=== PATIENT | female | born 1985 | race Caucasian/White ===

== ENCOUNTER 2021-06-10 12:46 | Inpatient (IN) | payer BC ==
--- OUTSIDE RECORDS SUMMARY | 2021-06-10 12:48 | XMS REPORT | Continuity of Care Document ---
:1985 Author Organization [facility] t Address [address] [place] [address] Dr. Wong [address] [place] [id number] Care Team Providers Name Role Phone Van_Gavino Attending Clinician Unavailable Van_T Admitting Clinician Unavailable Payers Payer Name Policy Type Policy Number Effective Date Expiration Date S ource [place] [id number] 2020 00:00:00 [place] Problems This patient has no known problems. Allergies, Adverse Reactions, Alerts This patient has no known allergies or adverse reactions. Medications This patient has no known medications. Procedures This patient has no known procedures. Encounters Start End Encounter Admission Attending Care Care Encounter Source Date/Time Date/Time Type Type Clinicians Facility Department ID 2021-04-08 2021-04-08 Outpatient Christine VFP VFP [id number] [id number] [facility] 11:03:00 11:03:00 [id number] Family Practic e Results This patient has no known results.
[2021-06-10] MEDS ORDERED: CEFEPIME 1 GM/VIAL ONE (14:08)
[2021-06-10] MEDS ORDERED: MORPHINE 4 MG/ML SYR ONE (14:08)
[2021-06-10] MEDS ORDERED: NA CHLORIDE 0.9% 1,000 ML ONE ×2 (14:09→16:10)
[2021-06-10] MEDS ORDERED: ONDANSETRON 4 MG/2 ML VIAL ONE (14:09)
[2021-06-10] MEDS ORDERED: NA CHLORIDE 0.9% 100 ML ONE (14:09)
--- NOTE | 2021-06-10 14:24 | EDPHYS ---
Physician Documentation [facility] Name: Flor Douglas Age: 36 yrs Sex: Female : 1985 Arrival Date: 06/10/2021 Time: 12:55 Bed 5 Private MD: Silvano Schaefer T ED Physician Aldo Zaragoza HPI: 06/10 14:07 This 36 yrs old Female presents to ER via Wheelchair with complaints of Wound Check. kb 14:07 The patient presents with cellulitis of the lateral aspect of left thigh. Description: kb erythematous, swollen, warm. Onset: The symptoms/episode began/occurred today. Possible cause(s): unknown. Associated signs and symptoms: Pertinent positives: drainage, erythema, swelling, Pertinent negatives: foreign body sensation, fever, headache, nausea, shortness of breath, vomiting. Modifying factors: the symptoms are alleviated by nothing, the symptoms are aggravated by movement, pressure, touching. Severity of symptoms: At their worst the symptoms were moderate, in the emergency department the symptoms are unchanged. The patient has not experienced similar symptoms in the past. The patient has not recently seen a physician. Pt was seen by NELDA Manrique in the office for a skin cancer removal. The wound got infected so she followed up today and had an I\\T\\D done with packing in place. Was sent to ER for admission for IV antibiotics due to cellulitis. Historical: - Allergies: 12:59 Vicodin; ll1 - PMHx: 12:59 Diabetes mellitus; depression; ll1 - PSHx: 12:59 section; breast implants; ll1 - Immunization history:: Client reports having NOT received the Covid vaccine. - Social history:: Smoking status: Patient denies any tobacco usage or history of. ROS: 14:06 Constitutional: Negative for fever, chills, and weight loss. kb 14:06 Skin: Positive for cellulitis, of the lateral aspect of left thigh, open wound. 14:06 All other systems are negative. Exam: 14:06 Constitutional: This is a well developed, well nourished patient who is awake, alert, kb and in no acute distress. Head/Face: Normocephalic, atraumatic. ENT: Moist Mucous membranes Cardiovascular: Regular rate and rhythm with a normal S1 and S2. No gallops, murmurs, or rubs. No pulse deficits. Respiratory: Respirations even and unlabored. No increased work of breathing. Talking in full sentences MS/ Extremity: Pulses equal, no cyanosis. Neurovascular intact. Full, normal range of motion. Neuro: Awake and alert, GCS 15, oriented to person, place, time, and situation. Moves all extremities. Normal gait. Psych: Awake, alert, with orientation to person, place and time. Behavior, mood, and affect are within normal limits. 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 Vital Signs: 12:57 BP 156 / 85; Pulse 120; Resp 18; Temp 96.5; Pulse Ox 100% ; Weight 83.91 kg; Height 5 ll1 ft. 9 in. (175.26 cm); Pain 10/10; 14:30 BP 125 / 84; Pulse 104; Resp 16; Pulse Ox 100% ; bp 15:30 BP 119 / 52; Pulse 70; Resp 18; Pulse Ox 99% ; bp 16:30 BP 120 / 87; Pulse 108; Resp 17; Pulse Ox 100% ; bp 17:30 BP 92 / 63; Pulse 95; Resp 16; Pulse Ox 99% ; bp 12:57 Body Mass Index 27.32 (83.91 kg, 175.26 cm) ll1 MDM: 13:10 Patient medically screened. kb 14:06 Data reviewed: vital signs, nurses notes. Data interpreted: Pulse oximetry: on room air kb is 100 %. Interpretation: normal. 14:22 Counseling: I had a detailed discussion with the patient and/or guardian regarding: the kb historical points, exam findings, and any diagnostic results supporting the discharge/admit diagnosis, lab results, the need for further work-up and treatment in the hospital. Physician consultation: Amauri Zaragoza MD was contacted at 14:22, regarding admission, to the medical/surgical unit. patient's condition, and will see patient in ED. 06/10 13:23 Order name: CBC with Diff; Complete Time: 15:22 kb 06/10 13:23 Order name: Basic Metabolic Panel; Complete Time: 15:22 kb 06/10 13:23 Order name: Blood Culture Adult (2) kb 06/10 13:23 Order name: Procal; Complete Time: 15:22 kb 06/10 13:23 Order name: Lactate; Complete Time: 15:22 kb 06/10 13:25 Order name: Wound Culture kb 06/10 13:25 Order name: COVID-19 SARS RT PCR (Document "Date of Onset" if Symptomatic) kb 06/10 13:26 Order name: Wound Culture EDMS 06/10 13:26 Order name: SARS-COV-2 RT PCR; Complete Time: 14:57 EDMS 06/10 14:48 Order name: Urine Dipstick-Ancillary; Complete Time: 14:49 EDMS 06/10 15:02 Order name: Ketone, Serum; Complete Time: 16:35 kb 06/10 15:20 Order name: Manual Differential; Complete Time: 15:22 EDMS 06/10 17:02 Order name: Glucose, Ancillary Testing; Complete Time: 17:04 EDMS 06/10 13:23 Order name: IV Start; Complete Time: 14:51 kb 06/10 15:11 Order name: CONS Physician Consult EDMS 06/10 16:42 Order name: Blood Glucose Level; Complete Time: 16:51 kb Administered Medications: 14:30 Drug: morphine 4 mg Route: IVP; Site: right antecubital; bp 17:54 Follow up: Response: Pain is decreased bp 14:30 Drug: Zofran (Ondansetron) 4 mg Route: IVP; Site: right antecubital; bp 17:55 Follow up: Response: No adverse reaction bp 14:30 Drug: Cefepime 1 grams Route: IVPB; Rate: 200 ml/hr; Infused Over: 30 mins; Site: right bp antecubital; 17:53 Follow up: IV Status: Completed infusion; IV Intake: 100ml bp 14:30 Drug: NS 0.9% 1000 ml Route: IV; Rate: 1000 ml; Site: right antecubital; bp 17:52 Follow up: IV Status: Completed infusion; IV Intake: 1000ml bp 15:00 Drug: vancoMYCIN 1 grams Route: IVPB; Infused Over: 2 hrs; Site: right antecubital; bp 17:53 Follow up: IV Status: Completed infusion; IV Intake: 250ml bp 15:45 Drug: NS 0.9% 1000 ml Route: IV; Rate: 1000 ml; Site: right antecubital; bp 17:52 Follow up: IV Status: Completed infusion; IV Intake: 1000ml bp 15:45 Drug: Insulin Regular Human 10 units {Co-Signature: [email or web address] (Alee Hatfield RN).} Route: bp IVP; Site: right antecubital; 17:53 Follow up: Response: No adverse reaction; Blood sugar is lowered bp Disposition: 06/11 07:21 Co-signature as Attending Physician, Aldo Zaragoza MD. rn 07:21 I agree with the assessment and plan of care. Attestation: The patient's history, exam rn findings, diagnostics, and a summary of any interventions or procedures was reviewed in detail with Judy SINGH. Disposition Summary: 06/10/21 14:23 Hospitalization Ordered Hospitalization Status: Inpatient Admission kb Provider: Amauri Zaragoza Location: Telemetry/MedSurg (Inpatient) kb Condition: Stable kb Problem: new kb Symptoms: are unchanged kb Bed/Room Type: Standard Room Assignment: 206(06/10/21 17:18) ll1 Diagnosis - Cellulitis of left lower limb kb Forms: - Medication Reconciliation Form kb - SBAR form kb Signatures: Dispatcher [employer] EDMS Judy Hernadez FNP-C FNP-Ckb Nieto, Roman, MD MD rn Peltier, Brian RN RN Christie Blankenship RN RN ll1 Alee Hatfield RN [email or web address] Corrections: (The following items were deleted from the chart) 06/10 15:20 15:20 [facility] 17:[facility] 14:23 kb ll1
--- NOTE | 2021-06-10 14:24 | ER ---
Nurse's Notes [facility] Name: Flor Douglas Age: 36 yrs Sex: Female : 1985 Arrival Date: 06/10/2021 Time: 12:55 Bed 5 Private MD: Silvano Schaefer T Diagnosis: Cellulitis of left lower limb Presentation: 06/10 12:57 Chief complaint: Patient states: Skin CA spot removed from L upper leg 1 week ago. ll1 Pain, swelling, redness worsening for 4 days. Sent by plastic surgeon for eval. Coronavirus screen: Vaccine status: Patient reports being unvaccinated. Client denies travel out of the [place] in the last 14 days. At this time, the client does not indicate any symptoms associated with coronavirus-19. Ebola Screen: Patient denies travel to an Ebola-affected area in the 21 days before illness onset. Initial Sepsis Screen: Does the patient meet any 2 criteria? HR > 90 bpm. No. Patient's initial sepsis screen is negative. Does the patient have a suspected source of infection? Yes: Skin breakdown/wound. Risk Assessment: Do you want to hurt yourself or someone else? Patient reports no desire to harm self or others. Onset of symptoms was June 07, 2021. 12:57 Method Of Arrival: Wheelchair ll1 12:57 Acuity: JORDAN 3 ll1 Triage Assessment: 13:00 General: Appears distressed, uncomfortable, Behavior is cooperative, appropriate for bp age, anxious. Pain: Complains of pain in lateral aspect of left thigh. EENT: No deficits noted. Neuro: No deficits noted. Cardiovascular: No deficits noted. Respiratory: No deficits noted. GI: No signs and/or symptoms were reported involving the gastrointestinal system. : No signs and/or symptoms were reported regarding the genitourinary system. Derm: Wound noted lateral aspect of left thigh Wound is INFECTED SURGICAL WOUND. Musculoskeletal: No deficits noted. Historical: - Allergies: 12:59 Vicodin; ll1 - PMHx: 12:59 Diabetes mellitus; depression; ll1 - PSHx: 12:59 section; breast implants; ll1 - Immunization history:: Client reports having NOT received the Covid vaccine. - Social history:: Smoking status: Patient denies any tobacco usage or history of. Screenin:00 Abuse screen: Denies threats or abuse. Denies injuries from another. Nutritional bp screening: No deficits noted. Tuberculosis screening: No symptoms or risk factors identified. Fall Risk None identified. Assessment: 13:00 General: SEE TRIAGE NOTE. bp 13:00 Pain: Complains of pain in lateral aspect of left thigh. bp 15:00 Reassessment: No changes from previously documented assessment. Patient and/or family bp updated on plan of care and expected duration. Pain level reassessed. Patient is alert, oriented x 3, equal unlabored respirations, skin warm/dry/pink. ADMIT INITIATED. 17:45 Reassessment: ADMIT COMPLETE. REPORT TO TERE TORRES FOR RM 206. bp Vital Signs: 12:57 BP 156 / 85; Pulse 120; Resp 18; Temp 96.5; Pulse Ox 100% ; Weight 83.91 kg; Height 5 ll1 ft. 9 in. (175.26 cm); Pain 10/10; 14:30 BP 125 / 84; Pulse 104; Resp 16; Pulse Ox 100% ; bp 15:30 BP 119 / 52; Pulse 70; Resp 18; Pulse Ox 99% ; bp 16:30 BP 120 / 87; Pulse 108; Resp 17; Pulse Ox 100% ; bp 17:30 BP 92 / 63; Pulse 95; Resp 16; Pulse Ox 99% ; bp 12:57 Body Mass Index 27.32 (83.91 kg, 175.26 cm) ll1 ED Course: 12:55 Patient arrived in ED. am2 12:56 Silvano Schaefer MD is Private Physician. am2 12:59 Triage completed. ll1 13:00 Arm band placed on Patient placed in an exam room, on a stretcher. ll1 13:00 Patient has correct armband on for positive identification. Bed in low position. Call bp light in reach. Side rails up X2. 13:08 Judy Hernade[facility]-C [facility]. kb 13:08 Aldo Zaragoza MD is Attending Physician. kb 13:33 Dash Laurent, MELISSA is Primary Nurse. bp 14:22 Amauri Zaragoza MD is Hospitalizing Provider. kb 14:23 Inserted saline lock: 20 gauge in right antecubital area, using aseptic technique. bp 17:52 No provider procedures requiring assistance completed. Patient admitted, IV remains in bp place. Administered Medications: 14:30 Drug: morphine 4 mg Route: IVP; Site: right antecubital; bp 17:54 Follow up: Response: Pain is decreased bp 14:30 Drug: Zofran (Ondansetron) 4 mg Route: IVP; Site: right antecubital; bp 17:55 Follow up: Response: No adverse reaction bp 14:30 Drug: Cefepime 1 grams Route: IVPB; Rate: 200 ml/hr; Infused Over: 30 mins; Site: right bp antecubital; 17:53 Follow up: IV Status: Completed infusion; IV Intake: 100ml bp 14:30 Drug: NS 0.9% 1000 ml Route: IV; Rate: 1000 ml; Site: right antecubital; bp 17:52 Follow up: IV Status: Completed infusion; IV Intake: 1000ml bp 15:00 Drug: vancoMYCIN 1 grams Route: IVPB; Infused Over: 2 hrs; Site: right antecubital; bp 17:53 Follow up: IV Status: Completed infusion; IV Intake: 250ml bp 15:45 Drug: NS 0.9% 1000 ml Route: IV; Rate: 1000 ml; Site: right antecubital; bp 17:52 Follow up: IV Status: Completed infusion; IV Intake: 1000ml bp 15:45 Drug: Insulin Regular Human 10 units {Co-Signature: [email or web address] (Alee Hatfield RN).} Route: bp IVP; Site: right antecubital; 17:53 Follow up: Response: No adverse reaction; Blood sugar is lowered bp Intake: 17:52 IV: 1000ml; Total: 1000ml. bp 17:52 IV: 1000ml; Total: 2000ml. bp 17:53 IV: 100ml; Total: 2100ml. bp 17:53 IV: 250ml; Total: 2350ml. bp Outcome: 14:23 Decision to Hospitalize by Provider. kb 17:38 Admitted to Med/surg accompanied by tech, via wheelchair, room 206, Report called to bp Nunu Goldman 17:38 Condition: stable 17:38 Instructed on the need for admit. 19:07 Patient left the ED. bp Signatures: Judy Hernadez, FRANCISCO CAPELLAN-Ioana Bowman am2 Dash Laurent RN RN bp Christie Moya RN RN 1 Alee Hatfield RN [email or web address] Corrections: (The following items were deleted from the chart) 17:46 15:00 Reassessment: No changes from previously documented assessment. Patient and/or bp family updated on plan of care and expected duration. Pain level reassessed. Patient is alert, oriented x 3, equal unlabored respirations, skin warm/dry/pink. bp
[2021-06-10 14:48] LABS: Urine Blood Trace-intact (Negative); Urine Glucose 2+ (Negative); Urine Protein Negative (Negative)
[2021-06-10 14:49] LABS: Absolute Lymphocytes (CBC) 0.7 K/uL (0.7-4.9); Lymphocytes % 3.3 % (15.3-44.8)
[2021-06-10 15:04] LABS: Potassium 3.5 mmol/L (3.5-5.1)
--- NOTE | 2021-06-10 15:18 | P.HP ---
Certification for Inpatient Patient admitted to: Inpatient With expected LOS: >2 Midnights Practitioner: I am a practitioner with admitting privileges, knowledge of patient current condition, hospital course, and medical plan of care. Services: Services provided to patient in accordance with Admission requirements found in Title 42 Section 412.3 of the Code of Federal Regulations Patient History Date of Service: 06/10/21 Reason for admission: L thigh wound infection History of Present Illness: 36yo F, PMH: type 1 diabetes mellitus, depression Presents to ED from her plastic surgeon's office due to infection of her L thigh wound. Patient underwent excision of a "skin cancer" ~1 week ago. She was doing well up until ~POD 3-4 when she noticed redness and pain of her upper thigh. This progressed and she was seen in the office today. Her surgical wound was opened up and patient reports some purulent drainage was expressed. She was advised by her surgeon to present to ED for IV antibiotics and possible further I&D. Pain in upper thigh has been severe enough to limit her ambulation. She took 3 days of antibiotics post-operatively, but is unsure of what antibiotic. In the ED, patient is afebrile, slightly tachycardic, and noted to have a leukocytosis up to 20k, hyperglycemic to 400. - Past Medical/Surgical History -: DM, type 1 -: Depression -: Csxn x2 -: Breast implants -: excisional biopsy - Family History Family History: Reviewed- Non-Contributory - Social History Smoking Status: Never smoker Alcohol use: No Place of Residence: Home Review of Systems 10-point ROS is otherwise unremarkable Physical Examination - Physical Exam General: Alert, Oriented x3, Other (somewhat uncomfortable appearing) HEENT: Mucous membr. moist/pink, Sclerae nonicteric Neck: Supple Respiratory: Clear to auscultation bilaterally, Normal air movement Cardiovascular: Regular rate/rhythm, No murmurs Gastrointestinal: Soft and benign, Non-distended, No tenderness Musculoskeletal: No swelling, No tenderness Integumentary: Other (L upper thigh, dressing in place, with significant surrounding erythema, tender to palpation, +warmth, no further appreciable abscess) Neurological: Normal speech, Normal strength at 5/5 x4 extr - Studies Laboratory Data (last 24 hrs) 06/10/21 14:23: Sodium 132 L, Potassium 3.5, BUN 9, Creatinine 0.88, Glucose 400 H 06/10/21 14:23: WBC 20.80 H*, Hgb 13.3, Hct 40.0, Plt Count 402 Assessment and Plan - Advance Directives Does patient have a Living Will: No Does patient have a Durable POA for Healthcare: No Physician Review Additional Text: Problem List L upper/lateral thigh wound cellulitis/abscess DM, type 1; insulin-dependent Depression admit for IV antibiotics - vanc & cefepime plastics consulted patient took perioperative antibiotics as prescribed leukocytosis and tachycardia, afebrile. no sepsis s/p I&D in office prior to admission ID consulted monitor labs, telemetry pain control IVF patient requesting to manage her glucose with her home insulin. discussed will need tight control and may not be able to fully accommodate if her glc remains elevated VTE: lovenox Code: full Dispo: anticipate dc home in ~2-3 days Time Spent Managing Pts Care (In Minutes): 60
[2021-06-10 15:21] LABS: Blood Morphology Comment NOT SEEN (NOT SEEN); Platelet Estimate ADEQ
[2021-06-10] MEDS ORDERED: D50W 25 GM/50 ML SYRINGE IV PRN (15:24)
[2021-06-10] MEDS ORDERED: GLUCAGON 1 MG/VIAL IM PRN (15:24)
[2021-06-10] MEDS ORDERED: VANCOMYCIN 1 GM/VIAL ONE (16:09)
[2021-06-10] MEDS ORDERED: NA CHLORIDE 0.9% 250 ML ONE (16:10)
[2021-06-10] MEDS ORDERED: INSULIN -REGULAR HUMAN 50 UNIT/0.5 ML ML ONE (16:10)
[2021-06-10] MEDS: NPH (HUMAN) 100 UNITS/ML INSULIN SQ SCH (17:00)
[2021-06-10 17:54] VITALS: BMI 27.3
[2021-06-10] MEDS: INSULIN -REGULAR HUMAN 50 UNIT/0.5 ML ML SQ SCH ×2 (17:55→21:10)
[2021-06-10] MEDS ORDERED: ONDANSETRON 4 MG/2 ML VIAL IV PRN (17:55)
[2021-06-10] MEDS: NA CHLORIDE 0.9% 1,000 ML IV SCH (17:55)
[2021-06-10] MEDS: ENOXAPARIN 40 MG/0.4 ML SQ SCH (21:08)
[2021-06-10] MEDS: MORPHINE 2 MG/ML SYR IV PRN (21:08)
[2021-06-10] MEDS: VANCOMYCIN 1.5 GM in NA CHLORIDE 0.9% 500 ML IVPB SCH (21:11)
[2021-06-10] MEDS: CEFEPIME 2 GM in NA CHLORIDE 0.9% 100 ML IV SCH (21:37)
[2021-06-11] MEDS: NA CHLORIDE 0.9% 1,000 ML IV SCH ×2 (03:55→16:15)
--- NOTE | 2021-06-11 05:49 | P.PN ---
Date of Service: 06/11/21 Sbjective: Continues with pain in left upper thigh, erythema slightly improved Morphine not lasting long enough No new complaints ROS: 10 point ROS as noted above, otherwise negative Physical exam General: Alert, Oriented x3, NAD HEENT: Mucous membr. moist/pink, Sclerae nonicteric Respiratory: Clear to auscultation bilaterally, Normal air movement Cardiovascular: Regular rate/rhythm, No murmurs Gastrointestinal: Soft and benign, Non-distended, No tenderness Musculoskeletal: No swelling, No tenderness Integumentary: L upper thigh, dressing in place, erythema improved Neurological: Normal speech, Normal strength at 5/5 x4 extr Problem List L upper/lateral thigh wound cellulitis/abscess DM, type 1; insulin-dependent Depression continue IV antibiotics - vanc & cefepime plastics consulted leukocytosis and tachycardia, afebrile on admission. no sepsis. Leukocytosis improving s/p I&D in office prior to admission Cultures were obtained at that point ID consulted as well. Continue antibiotics monitor labs, telemetry pain control with morphine, and oxycodone. Patient reports hallucinations with hydrocodone, and tramadol has been ineffective in the past DC IV fluids later today patient requesting to manage her glucose with her home insulin. discussed will need tight control and may not be able to fully accommodate if her glc remains elevated VTE: lovenox Code: full Dispo: anticipate dc home in ~2 days Time Spent Managing Pts Care (In Minutes): 35
[2021-06-11 05:51] LABS: Hematocrit 33.7 % (36.0-45.0); Lymphocytes % 6.7 % (15.3-44.8); MPV 7.8 fL (7.6-11.3); RBC Red Blood Cell Count 3.83 M/uL (3.86-4.86)
[2021-06-11 06:18] LABS: ALT/SGPT 15 U/L (12-78); AST/SGOT 13 U/L (15-37); Alkaline Phosphatase 98 U/L (45-117); BUN Blood Urea Nitrogen 6 mg/dL (7-18); Bicarbonate 22 mmol/L (21-32); Bilirubin Total 0.4 mg/dL (0.2-1.0); Glucose Level 189 mg/dL (74-106); Magnesium 2.1 mg/dL (1.8-2.4); Potassium 3.3 mmol/L (3.5-5.1); Protein, Total 5.9 g/dL (6.4-8.2); Sodium Level 139 mmol/L (136-145)
[2021-06-11] MEDS: MORPHINE 2 MG/ML SYR IV PRN ×3 (08:37→21:19)
[2021-06-11] MEDS: ENOXAPARIN 40 MG/0.4 ML SQ SCH (08:40)
[2021-06-11] MEDS: CEFEPIME 2 GM in NA CHLORIDE 0.9% 100 ML IV SCH ×2 (08:40→20:10)
[2021-06-11] MEDS: VANCOMYCIN 1.5 GM in NA CHLORIDE 0.9% 500 ML IVPB SCH ×2 (08:41→21:40)
[2021-06-11] MEDS: NPH (HUMAN) 100 UNITS/ML INSULIN SQ SCH ×2 (08:42→16:50)
[2021-06-11] MEDS: INSULIN -REGULAR HUMAN 50 UNIT/0.5 ML ML SQ SCH ×4 (08:42→20:09)
[2021-06-11] MEDS ORDERED: OXYCODONE HCL 5 MG TAB PO PRN (10:37)
--- NOTE | 2021-06-11 10:43 | P.PN ---
Subjective Date of Service: 06/11/21 Chief Complaint: L thigh wound infection The patient is a 28-year-old female with a past medical history of type 1 diabetes, depression, and squamous cell skin cancer who presented to the emergency department secondary to left thigh cellulitis. A week ago the patient underwent excision of a skin cancer lesion on her left upper thigh. Patient states that she was doing well up until postop day 3-4 when she started noticing redness and swelling to the area. She states that she took antibiotics for 3 days following her procedure, she does not remember which antibiotic she was taking. Her surgical wound was opened up and purulent drainage was expressed. She was advised by her plastic surgeon to present to the ED for possible treatment with IV antibiotics. Patient empirically placed on vancomycin and cefepime. Preliminary wound culture reports growing Staph coagulase positive. Patient denies any and past medical history of cellulitis or staph infection. Per patient she has no other cancerous lesions. Wound is currently packed with dressing to be changed by her plastic surgeon who is set to visit the patient in the hospital today. Patient currently a reports pain to the area and nausea. She denies diarrhea/shortness breast/chest pain. No COVID 19 symptoms. Patient tested negative at this facility. Review of Systems 10-point ROS is otherwise unremarkable Physical Examination - Vital Signs Temperature: 97.4 F Blood Pressure: 120/60 Pulse: 99 Respirations: 17 Pulse Ox (%): 94 - Physical Exam General: Alert, Oriented x3, Cooperative HEENT: Atraumatic, Normocephalic Neck: Supple Respiratory: Clear to auscultation bilaterally, Normal air movement Cardiovascular: Regular rate/rhythm, Normal S1 S2 Gastrointestinal: Normal bowel sounds, Soft and benign Integumentary: Other (Left upper thigh cellulitis/swelling. Open incision status post drainage of abscess.) - Studies Laboratory Data (last 24 hrs) 06/10/21 14:23: Sodium 132 L, Potassium 3.5, BUN 9, Creatinine 0.88, Glucose 400 H 06/10/21 14:23: WBC 20.80 H*, Hgb 13.3, Hct 40.0, Plt Count 402 Microbiology Data (last 24 hrs): 06/10/21 14:28 Wound - Left Thigh Gram Stain - Final Assessment And Plan - Plan Antibiotics: Vancomycin Start: 06/10 Cefepime Start: 1/4 Assessment/plan Infected incision status post excision of cancerous lesion Excision performed approximately 1 week ago. Area opened up and purulent drainage expressed. Continue wound care per Plastic Surgical team. Continue broad-spectrum IV antibiotics with vancomycin and cefepime until full culture reports obtained. Vancomycin trough goal of 10-15. Currently dosed q.12 hr. Leukocytosis Down trending, continue broad-spectrum IV antibiotics. Anemia Continue monitor H&H Diabetes type 1 Continue SSI. Strict glucose monitoring needed for proper infection control and wound healing. Protein caloric malnutrition: Moderate Recommend supplemental Ensure protein drinks. -medical management per primary team -plan care discussed with Dr. Reyes -thank you for consultation Physician Review Additional Text: Problem List L upper/lateral thigh wound cellulitis/abscess DM, type 1; insulin-dependent Depression admit for IV antibiotics - vanc & cefepime plastics consulted patient took perioperative antibiotics as prescribed leukocytosis and tachycardia, afebrile. no sepsis s/p I&D in office prior to admission ID consulted monitor labs, telemetry pain control IVF patient requesting to manage her glucose with her home insulin. discussed will need tight control and may not be able to fully accommodate if her glc remains elevated VTE: lovenox Code: full Dispo: anticipate dc home in ~2-3 days
[2021-06-11] MEDS ORDERED: POTASSIUM CL SA 10 MEQ TAB PO ONE (16:00)
[2021-06-12] MEDS ORDERED: POTASSIUM CL SA 10 MEQ TAB PO ONE ×2 (01:00→09:00)
[2021-06-12 04:47] LABS: Absolute Lymphocytes (CBC) 1.5 K/uL (0.7-4.9); Hematocrit 32.4 % (36.0-45.0); Lymphocytes % 12.1 % (15.3-44.8); MPV 7.5 fL (7.6-11.3); RBC Red Blood Cell Count 3.75 M/uL (3.86-4.86)
[2021-06-12 05:08] LABS: BUN Blood Urea Nitrogen 4 mg/dL (7-18); Bicarbonate 27 mmol/L (21-32); Potassium 3.6 mmol/L (3.5-5.1); Sodium Level 143 mmol/L (136-145)
[2021-06-12 05:27] LABS: Glucose Level 46 mg/dL (74-106)
--- NOTE | 2021-06-12 05:54 | P.PN ---
Date of Service: 06/12/21 Subjective: Leukocytosis improving Pain slowly improving as well, worse with dressing changes/packing No new complaints, remains afebrile ROS: 10 point ROS as noted above, otherwise negative Physical exam General: Alert, Oriented x3, NAD HEENT: Mucous membr. moist/pink, Sclerae nonicteric Respiratory: Clear to auscultation bilaterally, Normal air movement Cardiovascular: Regular rate/rhythm, No murmurs Gastrointestinal: Soft and benign, Non-distended, No tenderness Integumentary: L upper thigh, dressing in place, erythema much improved, dressing changes - c/d/i Problem List L upper/lateral thigh wound cellulitis/abscess DM, type 1; insulin-dependent Depression empirically treated by vanc/cefepime culture obtained in ED growing MSSA ID recommends monotherapy with IV Vanc for now leukocytosis and tachycardia, afebrile on admission. no sepsis. Leukocytosis improving s/p I&D in office prior to admission Cultures were obtained at that point pain control with morphine, and oxycodone. Patient reports hallucinations with hydrocodone, and tramadol has been ineffective in the past patient requested to manage her glucose with her home insulin. waiting on final cultures VTE: lovenox Code: full Dispo: anticipate dc home likely tomorrow with home health Time Spent Managing Pts Care (In Minutes): 35
--- NOTE | 2021-06-12 07:26 | P.PN ---
PRS Note S: dressing changed over night. tolerated well. still endorses pain, but overall improving. O: VSS WBC 15-->12 Cx: s. 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 clinically improving. - continue to pack twice a day with wet to dry kerlix (ok for patient to perform one of the dressing changes herself as she will be packing at home) - abx per ID - social work to help set up home health for wound care at home (supplies and aid) - elevate leg - tight glucose control - hopefully can d/c in next day or so
[2021-06-12] MEDS: INSULIN -REGULAR HUMAN 50 UNIT/0.5 ML ML SQ SCH ×4 (07:30→21:00)
[2021-06-12] MEDS: MORPHINE 2 MG/ML SYR IV PRN ×3 (09:12→23:03)
[2021-06-12] MEDS: CEFEPIME 2 GM in NA CHLORIDE 0.9% 100 ML IV SCH (09:13)
[2021-06-12] MEDS: NPH (HUMAN) 100 UNITS/ML INSULIN SQ SCH ×2 (09:13→17:26)
[2021-06-12] MEDS: ENOXAPARIN 40 MG/0.4 ML SQ SCH (09:13)
[2021-06-12] MEDS: VANCOMYCIN 1.5 GM in NA CHLORIDE 0.9% 500 ML IVPB SCH ×2 (09:14→21:15)
--- NOTE | 2021-06-12 12:34 | P.PN ---
Subjective Date of Service: 06/12/21 Chief Complaint: L thigh wound infection Patient seen examined at bedside, doing well no acute complaints. Denies nausea/vomiting/diarrhea, tolerating antibiotics well. Review of Systems 10-point ROS is otherwise unremarkable Physical Examination - Vital Signs Temperature: 97 F Blood Pressure: 103/66 Pulse: 98 Respirations: 18 Pulse Ox (%): 94 - Studies Microbiology Data (last 24 hrs): 06/10/21 14:28 Wound - Left Thigh Gram Stain - Final 06/10/21 14:28 Wound - Left Thigh Culture & Sensitivity - Final Staph Aureus Assessment And Plan - Plan Physical exam: General: Alert, Oriented x3, Cooperative HEENT: Atraumatic, Normocephalic Neck: Supple Respiratory: Clear to auscultation bilaterally, Normal air movement Cardiovascular: Regular rate/rhythm, Normal S1 S2 Gastrointestinal: Normal bowel sounds, Soft and benign Integumentary: Other (Left upper thigh cellulitis/swelling. Open incision status post drainage of abscess.) Antibiotics: Vancomycin Start: 06/10 Cefepime Start: 06/10 Stop: 06/12 Assessment/plan Infected incision status post excision of cancerous lesion Excision of skin lesion performed approximately 1 week ago. Patient was seen in clinic where her plastic surgeon I& D the area. Continue wound care per Plastic Surgical team. Wound culture report obtained at that clinic still pending. Wound culture obtained in the ED at our facility growing MSSA. IV cefepime discontinued, continue IV vancomycin until wound culture report from Plastic surgery offices obtained. Vancomycin trough goal of 10-15. Currently dosed q.12 hr. Leukocytosis Down trending, continue broad-spectrum IV antibiotics. Anemia Continue monitor H&H Diabetes type 1 Continue SSI. Strict glucose monitoring needed for proper infection control and wound healing. Protein caloric malnutrition: Moderate Recommend supplemental Ensure protein drinks. -medical management per primary team -plan care discussed with Dr. Reyes -thank you for consultation
[2021-06-13] MEDS ORDERED: FENTANYL CITR 100 MCG/2 ML IV ONE (01:20)
[2021-06-13 05:58] LABS: Absolute Lymphocytes (CBC) 1.9 K/uL (0.7-4.9); Hematocrit 36.1 % (36.0-45.0); Lymphocytes % 17.4 % (15.3-44.8); MPV 7.4 fL (7.6-11.3); RBC Red Blood Cell Count 4.15 M/uL (3.86-4.86)
[2021-06-13 06:18] LABS: BUN Blood Urea Nitrogen 4 mg/dL (7-18); Bicarbonate 29 mmol/L (21-32); Glucose Level 79 mg/dL (74-106); Potassium 3.5 mmol/L (3.5-5.1); Sodium Level 141 mmol/L (136-145)
[2021-06-13] MEDS ORDERED: ACETAMINOPHEN 500 MG TAB PO ONE ×2 (07:27→08:25)
[2021-06-13] MEDS ORDERED: IBUPROFEN 600 MG TAB PO PRN (07:27)
[2021-06-13] MEDS ORDERED: IBUPROFEN 400 MG TAB PO ONE (07:27)
[2021-06-13] MEDS ORDERED: ACETAMINOPHEN 500 MG TAB PO PRN (07:27)
[2021-06-13] MEDS: INSULIN -REGULAR HUMAN 50 UNIT/0.5 ML ML SQ SCH ×2 (07:30→12:27)
[2021-06-13] MEDS ORDERED: GABAPENTIN 300 MG CAP PO SCH (07:45)
[2021-06-13] MEDS: NPH (HUMAN) 100 UNITS/ML INSULIN SQ SCH (08:33)
[2021-06-13] MEDS: VANCOMYCIN 1.5 GM in NA CHLORIDE 0.9% 500 ML IVPB SCH (08:34)
[2021-06-13] MEDS: ENOXAPARIN 40 MG/0.4 ML SQ SCH (08:34)
--- NOTE | 2021-06-13 11:26 | P.PN ---
Subjective Date of Service: 06/13/21 Chief Complaint: L thigh wound infection Patient seen examined at bedside, no acute events. Review of Systems 10-point ROS is otherwise unremarkable Physical Examination - Vital Signs Temperature: 97.7 F Blood Pressure: 115/68 Pulse: 90 Respirations: 18 Pulse Ox (%): 98 - Studies Active Medications Dextrose (D50w 25 Gm/50 Ml Syringe) 12.5 gm IV PRN PRN; Protocol PRN Reason: HYPOGLYCEMIA Enoxaparin Sodium (Enoxaparin 40 Mg/0.4 Ml) 40 mg SQ DAILY [facility] Last Admin: 06/13/21 08:34 Dose: 40 mg Documented by: Glucagon (Glucagon 1 Mg/Vial) 1 mg IM 1X PRN; Protocol PRN Reason: HYPOGLYCEMIA Vancomycin HCl 1.5 gm/ Sodium (Chloride) 500 mls @ 166.667 mls/hr IVPB Q12HR [facility]; Protocol Last Admin: 06/13/21 08:34 Dose: 500 mls Documented by: Ibuprofen (Ibuprofen 600 Mg Tab) 600 mg PO Q8H PRN PRN Reason: Pain scale 5-7 (Moderate) Insulin Human NPH (Nph (Human) 100 Units/Ml Insulin) 20 units SQ DAILY WITH BREAKFAST [facility] Last Admin: 06/13/21 08:33 Dose: 20 units Documented by: Insulin Human NPH (Nph (Human) 100 Units/Ml Insulin) 10 units SQ DAILY AT SUPPER [facility] Last Admin: 06/12/21 17:26 Dose: 10 units Documented by: Insulin Human Regular (Insulin -Regular Human 50 Unit/0.5 Ml Ml) 0 unit SQ ACHS [facility]; Protocol Last Admin: 06/13/21 07:30 Dose: Not Given Documented by: Morphine Sulfate (Morphine 2 Mg/Ml Syr) 2 mg IV Q4H PRN PRN Reason: Pain scale 8-10 (Severe) Last Admin: 06/12/21 23:03 Dose: 2 mg Documented by: Ondansetron HCl (Ondansetron 4 Mg/2 Ml Vial) 4 mg IV Q6HP PRN PRN Reason: NAUSEA / VOMITING Oxycodone HCl (Oxycodone Hcl 5 Mg Tab) 5 mg PO Q6H PRN PRN Reason: Pain scale 5-7 (Moderate) Last Admin: 06/11/21 12:20 Dose: 5 mg Documented by: Sodium Chloride (Flush Normal Saline 10 Ml) 10 ml IV BID [facility] Last Admin: 06/13/21 08:35 Dose: 10 ml Documented by: Microbiology Data (last 24 hrs): 06/10/21 14:28 Wound - Left Thigh Gram Stain - Final 06/10/21 14:28 Wound - Left Thigh Culture & Sensitivity - Final Staph Aureus Assessment And Plan - Plan Physical exam: General: Alert, Oriented x3, Cooperative HEENT: Atraumatic, Normocephalic Neck: Supple Respiratory: Clear to auscultation bilaterally, Normal air movement Cardiovascular: Regular rate/rhythm, Normal S1 S2 Gastrointestinal: Normal bowel sounds, Soft and benign Integumentary: Other (Left upper thigh cellulitis/swelling. Open incision st atus post drainage of abscess.) Antibiotics: Vancomycin Start: 06/10 Cefepime Start: 06/10 Stop: 06/12 Assessment/plan Infected incision status post excision of cancerous lesion Excision of skin lesion performed approximately 1 week ago. Patient was seen in clinic where her plastic surgeon I& D the area. Continue wound care per Plastic Surgical team. Wound culture report obtained at that clinic growing DIANA. Recommend sending patient home on oral bactrim for a total antibioitc duration of two weeks. Leukocytosis Down trending, continue IV antibiotics. Anemia Continue monitor H&H Diabetes type 1 Continue SSI. Strict glucose monitoring needed for proper infection control and wound healing. Protein caloric malnutrition: Moderate Recommend supplemental Ensure protein drinks. -medical management per primary team -plan care discussed with Dr. Reyes -thank you for consultation
[2021-06-13 13:05] VITALS: BP 138/75; TEMP 97.3
[2021-06-13 15:13] VITALS: O2SAT 94
== END 2021-06-13 16:08 | disposition home or self-care (01) | DRG 920 ==
LOC: ER 12:46 → ERHOLD 15:22 → 2ND 17:40
PROVIDERS: ADMIT Hospitalist; ATTEND Hospitalist
DX: L76.82 Other postprocedural complications of skin and subcutaneous tissue (principal); L03.116 Cellulitis of left lower limb; E44.0 Moderate protein-calorie malnutrition; L02.416 Cutaneous abscess of left lower limb; D72.829 Elevated white blood cell count, unspecified; D64.9 Anemia, unspecified; E10.65 Type 1 diabetes mellitus with hyperglycemia; F32.A Depression, unspecified; B95.61 Methicillin susceptible Staphylococcus aureus infection as the cause of diseases classified elsewhere; R00.0 Tachycardia, unspecified; Z88.5 Allergy status to narcotic agent; Z85.828 Personal history of other malignant neoplasm of skin; Z68.27 Body mass index [BMI] 27.0-27.9, adult; Z79.4 Long term (current) use of insulin; Z20.822 Contact with and (suspected) exposure to COVID-19
CPT/HCPCS: 36415; 80048; 80053; 80202; 81003; 82010; 82947; 83605; 83735; 84132; 84145; 85025; 87040; 87070; 87077; 87186; 87205; 94760; 96365; 96366; 96375; 99285; J0692; J1650; J1815; J2270; J2405; J3010; J3370; J7030; J7040; J7050; U0003

== ENCOUNTER → 2021-10-21 | Day surgery (SDC) | payer BC ==
--- NOTE | 2021-10-21 11:10 | RAD REPORT ---
EXAM DESCRIPTION: US - Breast Aspiration Inital - 10/21/2021 10:27 am CLINICAL HISTORY: Mass 9 o'clock right breast. COMPARISON: Mammogram and ultrasound imaging October 03 FINDINGS: The patient presents for ultrasound-guided breast biopsy. The procedure, risks and alterna tives were discussed with the patient in detail. After answering all questions, oral and written con sent were obtained. Time out procedure was performed. The patient had no contraindicated allergy or medication history. Preliminary imaging again identified the 6 mm rounded hypoechoic mass in the 9 o'clock right breast a pproximately 2 cm lateral to the areolar margin. The skin was prepped and draped in the usual sterile fashion. Skin and deeper tissues were anesthetized with 1 percent lidocaine. Prior to the expected biopsy, a 25 gauge needle was used to penetrate the mass. Under syringe aspiration, the mass was seen to collapse from the rounded 6 millimeter diameter to an oval or oblong mass of 2 mm maximum dimensi on. The minimal amount of aspirated fluid was given to pathology for evaluation. Given the near compl ete collapse of the mass, no core biopsy was performed. No tissue marker clip placed. The patient tolerated the procedure well without complications. Post-procedure care and precaution in structions were given to the patient. IMPRESSION: The suspicious 6 mm mass in the 9 o'clock right breast was a complex cyst. The mass near ly fully collapsed on aspiration. No remnant was seen that was considered suspicious. No core biopsy performed or biopsy clip placed. Ongoing monitoring of this mass is not felt to be warranted outside of routine annual mammography
== END ==
LOC: DS 10:00
PROVIDERS: ATTEND Plastic Surgery
DX: N60.01 Solitary cyst of right breast (principal)
CPT/HCPCS: 19000; 88162; 88305